=== PATIENT | female | born 1960 | race Caucasian/White ===

== ENCOUNTER 2022-01-01 15:12 | Emergency (ER) | payer OTHER, SELFPAY ==
[2022-01-01 15:23] VITALS: BP 146/77; PULSE 87; RESP 20; TEMP 36.3; O2SAT 96; BMI 33.5
--- NOTE | 2022-01-01 15:36 | CRLHL7_ITS ---
For Patients: As a result of the Cures Act, medical imaging exams and procedure reports are released immediately into your electronic medical record. You may view this report before your referring provider. If you have questions, please contact your health care provider. INDICATION: Left knee pain in the patellar region. TECHNIQUE: Three views of the left knee. FINDINGS: Soft tissue swelling anterior to the patella. No patellar fracture or patellar subluxation. The medial and lateral compartments are fairly well preserved. No acute fracture, dislocation, or erosion. IMPRESSION: Soft tissue swelling anterior to the left patella. Please correlate regarding any history of trauma. Dictated by Rodríguez Pinto MD @ 01/01/2022 4:50:52 PM (Electronically Signed)
--- NOTE | 2022-01-01 15:37 | ED.GENADULT ---
HPI - General Adult General Time Seen by Provider: 15:37 Date Seen: 01/01/22 Chief complaint: Extremity Pain/Injury, Lower Stated complaint: SLIPPED PATELLA Time Seen by Provider: 01/01/22 15:13 Source: patient Mode of arrival: ambulatory Limitations: no limitations History of Present Illness HPI narrative: Patient is a 61 year white female was getting on the bed with her dog, and put 1 leg up and got both legs up and then felt something funny in her left kneecap area and noticed some swelling and what seemed to be deformity. She is able to move her knee, she has noted some swelling over the top of the kneecap. She denies significant trauma or injury. She has had no recent or prior history of knee injury or patellar dislocations. No other injury or problem at this time. Pain is reported to be minimal now. Related Data Home Medications Medication Instructions Recorded Confirmed No Known Home Medications 01/01/22 01/01/22 Allergies Allergy/AdvReac Type Severity Reaction Status Date / Time Penicillins Allergy Fever Verified 01/01/22 15:27 Review of Systems Status of ROS: Reports: 6 or more systems reviewed and unremarkable except as noted in History and below [facility] Social History Smoking Status: Never smoker Do you use any of these nicotine containing products: None Second hand tobacco smoke exposure: No How often do you have a drink containing alcohol: never How many standard drinks containing alcohol do you have on a typical day: 1 or 2 How often do you have six or more drinks on one occasion: Never AUDIT-C Alcohol total score: 0 Non-prescribed substance use: denies use Exam Narrative: Exam Narrative: Objective: Patient has reassuring vital signs Appears in no distress Left knee shows some prepatellar swelling and bruising she is able to flex and extend her knee fairly fully distal CMS normal left lower extremity. She has mild patellar apprehension sign Patella does not appear to be dislocated, and seems a ride in the femoral groove with flexion extension of the knee. Const: Vital Signs, click to edit/add: Vital Signs - 24 hr 01/01/22 15:23 Temperature 97.3 F L Pulse Rate [Right Pulse Oximeter] 87 Respiratory Rate 20 Blood Pressure [Ri ght Upper Arm] 146/77 H Pulse Oximetry 96 Course Vital Signs Vital signs: Initial Vital Signs Temperature 97.3 F L 01/01/22 15:23 Temperature Source Temporal Artery Scan 01/01/22 15:23 Pulse Rate 87 01/01/22 15:23 Respiratory Rate 20 01/01/22 15:23 Blood Pressure 146/77 H 01/01/22 15:23 Blood Pressure Mean 100 01/01/22 15:23 Blood Pressure Position Supine 01/01/22 15:23 Pulse Oximetry 96 01/01/22 15:23 Vital Signs Temperature 97.3 F L 01/01/22 15:23 Pulse Rate 87 01/01/22 15:23 Respiratory Rate 20 01/01/22 15:23 Blood Pressure 146/77 H 01/01/22 15:23 Pulse Oximetry 96 01/01/22 15:23 Temperature 97.3 F L 01/01/22 15:23 Pulse Rate 87 01/01/22 15:23 Respiratory Rate 20 01/01/22 15:23 Blood Pressure 146/77 H 01/01/22 15:23 Pulse Oximetry 96 01/01/22 15:23 Medical Decision Making MDM Narrative Medical decision making narrative: Patient possibly had a subluxed patella with now prepatellar swelling and bursitis inflammation. Will check an x-ray including a sunrise view of the left knee, will get her a knee immobilizer, have her ice on a grass on aggressive basis 10 minutes 3 to 4 times a day if possible, and follow up with primary care in the next 2-3 days for reassessment. She was comfortable this plan. Will review x-rays returns. Addendum: The patient's x-ray by my read shows no patellar dislocation or fracture. Knee immobilizer, weight-bearing as tolerated, icing on a regular basis, Advil 600 mg t.i.d. over the next few days, follow-up with primary care in 2-3 days, certainly return to the ED sooner problems concerns difficulty, will await Radiology read of her x-ray. Discharge Plan Discharge Clinical Impression: Acute knee pain, Lateral subluxation of left patella Patient Disposition: Home, Self-Care Condition: Stable Additional Instructions: Knee immobilizer until follow-up with primary care in the next 2-3 days Advil 400-600 mg t.i.d. over the next few days Iced 10 minutes 3 to 4 times a day to the left knee area Return to ED problems concerns difficulty. Activity Level: Weight Bearing as Tolerated Discharge Diet: Regular Prescriptions: No Action No Known Home Medications Stand Alone Forms: [employer] Info Instructions
== END 2022-01-01 16:20 | disposition home or self-care (01) ==
LOC: ED 16:15
PROVIDERS: Emergency Provider Family Medicine
DX: S83.012A Lateral subluxation of left patella, initial encounter (principal)
CPT/HCPCS: 73562; 99283; M0243

== ENCOUNTER 2022-04-04 08:30 | Outpatient (RCR) | payer OTHER, SELFPAY | END 2022-05-04 14:36 | disposition home or self-care (01) | PROVIDERS: Visit Provider Family Medicine | DX: S83.006D Unspecified dislocation of unspecified patella, subsequent encounter (principal); Z51.89 Encounter for other specified aftercare | CPT/HCPCS: 97110; 97140; 97161 ==

== ENCOUNTER 2024-03-08 13:18 | Emergency (ER) | payer OTHER, SELFPAY ==
[2024-03-08 13:26] VITALS: BP 159/80; PULSE 89; RESP 16; TEMP 36.9; O2SAT 95; BMI 33.3
--- NOTE | 2024-03-08 13:34 | ED_ITS ---
HPI - General Adult General Chief complaint: Fall/Minor Trauma Stated complaint: Fall, hit head Time Seen by Provider: 03/08/24 13:33 History of Present Illness HPI narrative: c/o fall and hit side of head on cement wall. missed one step and stumbled into cement wall, pt. denies LOC and blood thinners. 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 64-year-old woman presenting to the emergency department following a fall. Missed a step and stumbled into a cement wall. Partly related to blindness in the right eye probably. Right-sided jaw feels stiff. She indicates area that she was hit she believes to be her samaritan and would prefer not to have a Ale Silveira like event. Denies significant neck pain. No back pain. There was no loss of consciousness. No radicular symptoms. Related Data Home Medications ?Medication ?Instructions ?Recorded ?Confirmed ergocalciferol (vitamin D2) 10 mcg 400 unit PO DAILY 01/06/22 10/30/23 (400 unit) tablet multivitamin (Multiple Vitamins 1 tab PO QDAY 01/06/22 10/30/23 tablet) ascorbic acid (vitamin C) 500 mg 500 mg PO DAILY 07/07/23 10/30/23 capsule magnesium L-threonate 48 mg 48 mg PO DAILY 07/07/23 10/30/23 magnesium (667 mg) capsule omega-3 fatty acids 500 mg capsule 500 mg PO QDAY 07/07/23 10/30/23 Allergies Allergy/AdvReac Type Severity Reaction Status Date / Time Penicillins Allergy Fever Verified 03/08/24 13:26 azithromycin AdvReac Mild Nausea Verified 03/08/24 13:26 Review of Systems Status of ROS: Reports: 6 or more systems reviewed and unremarkable except as noted in History and below [facility] Surgical History (Updated 01/06/22 @ 15:34 by Raul Woodall MD) History of eye surgery ?Z98.890 - Other specified postprocedural states (ICD-10) Hx of section ?Z98.891 - History of uterine scar from previous surgery (ICD-10) Social History Smoking Status: Never smoker Do you use any of these nicotine containing products: None Second hand tobacco smoke exposure: No How often do you have a drink containing alcohol: never How many standard drinks containing alcohol do you have on a typical day: 1 or 2 How often do you have six or more drinks on one occasion: Never AUDIT-C Alcohol total score: 0 Non-prescribed substance use: denies use Exam Narrative: Exam Narrative: Pleasant. NAD. Cranial nerves 2-12 are intact however lack of reaction and accommodation in the right eye. Moving all extremities without difficulty. Neck is supple. Little sore in the low paracervical musculature on the left or into the trapezius. Area of discomfort and impact appears to been the posterior zygoma/zygomatic arch into the TMJ or above the TMJ. No dental injury. No crepitus ordered defect appreciated. Extraocular movements are full. Const: Vital Signs, click to edit/add: Vital Signs - 24 hr 03/08/24 13:26 Temperature 98.4 F Pulse Rate [Pulse Oximeter] 89 Respiratory Rate 16 Blood Pressure [Ri ght Upper Arm] 159/80 H Pulse Oximetry 95 Oxygen Delivery Me thod Room Air Documenting provider has reviewed patient's vital signs: yes Course Vital Signs Vital signs: Initial Vital Signs Temperature 98.4 F 03/08/24 13:26 Temperature Source Temporal Artery Scan 03/08/24 13:26 Pulse Rate 89 03/08/24 13:26 Respiratory Rate 16 03/08/24 13:26 Blood Pressure 159/80 H 03/08/24 13:26 Blood Pressure Mean 106 H 03/08/24 13:26 Blood Pressure Position Sitting 03/08/24 13:26 Pulse Oximetry 95 03/08/24 13:26 Oxygen Delivery Method Room Air 03/08/24 13:26 Vital Signs Temperature 98.4 F 03/08/24 13:26 Pulse Rate 89 03/08/24 13:26 Respiratory Rate 16 03/08/24 13:26 Blood Pressure 159/80 H 03/08/24 13:26 Pulse Oximetry 95 03/08/24 13:26 Oxygen Delivery Method Room Air 03/08/24 13:26 Temperature 98.4 F 03/08/24 13:26 Pulse Rate 89 03/08/24 13:26 Respiratory Rate 16 03/08/24 13:26 Blood Pressure 159/80 H 03/08/24 13:26 Pulse Oximetry 95 03/08/24 13:26 Oxygen Delivery Method Room Air 03/08/24 13:26 Medical Decision Making MDM Narrative Medical decision making narrative: I think more of a contusion than likely intracranial head injury. Does not appear to have sustained impact actually at the samaritan. Think watchful waiting would be acceptable option here. CT head is certainly an acceptable option as well. This does appear to have been a trip and fall event more than any sort of presyncopal case. Will to consider this further. She would like to proceed with head CT. Thi s was arranged. CT head reviewed by me does not show any acute abnormality. Radiology over-read noting ?right orbital prosthesis? Had been icing. See patient discharge plan for further discussion Medical Records Medical records reviewed: Yes I reviewed the patient's medical records Discharge Plan Discharge Clinical Impression: Closed head injury, Contusion Additional Instructions: I would ice this impact area 2-3 times daily over the next few days. Ibuprofen or acetaminophen or naproxen. Discussed neck pull down stretches. Could do these a few times a day. Little deeper each time. See also handout on upper back stretches that might be helpful. Prescriptions: No Action multivitamin [Multiple Vitamins] Tablet 1 tab PO QDAY ergocalciferol (vitamin D2) 10 mcg (400 unit) tablet 400 unit PO DAILY magnesium L-threonate 48 mg magnesium (667 mg) capsule 48 mg PO DAILY ascorbic acid (vitamin C) 500 mg capsule 500 mg PO DAILY omega-3 fatty acids 500 mg capsule 500 mg PO QDAY Follow Up/Referrals: Provider,Not a Local [Primary Care Provider] - Stand Alone Forms: [employer] Info Instructions
--- NOTE | 2024-03-08 13:59 | CRLHL7_ITS ---
For Patients: As a result of the Century Cures Act, medical imaging exams and procedure reports are released immediately into your electronic medical record. You may view this report before your referring provider. If you have questions, please contact your health care provider. INDICATION: Right-sided head impact TECHNIQUE: CT head without contrast. COMPARISON: None. FINDINGS: CSF spaces: Within normal limits for age. Brain parenchyma: The rodriguez-white differentiation is normal. No sign of mass, hemorrhage, or midline shift. Skull base and calvarium: The visualized paranasal sinuses and mastoid air cells demonstrate no acute or significant findings. Right orbital prosthesis. No skull fractures. IMPRESSION: Unremarkable noncontrast head CT. Please note that all CT scans at this facility use dose modulation, iterative reconstruction, and/or weight-based dosing when appropriate to reduce radiation dose to as low as reasonably achievable. Dictated by Leo Moon MD @ 03/08/2024 2:37:09 PM (Electronically Signed)
== END 2024-03-08 15:42 | disposition home or self-care (01) ==
LOC: ED 15:30
PROVIDERS: Emergency Provider Family Medicine
DX: S00.93XA Contusion of unspecified part of head, initial encounter (principal); W01.198A Fall on same level from slipping, tripping and stumbling with subsequent striking against other object, initial encounter
CPT/HCPCS: 70450; 99284

== ENCOUNTER 2024-10-19 00:18 | Emergency (ER) | payer BC, SELFPAY ==
[2024-10-19 01:03] VITALS: BP 141/81; PULSE 89; RESP 18; TEMP 36.7; O2SAT 99; BMI 33.9
--- NOTE | 2024-10-19 01:14 | ED_ITS ---
HPI - Eye Problem General Time Seen by Provider: 01:14 Date Seen: 10/19/24 Chief complaint: Eye Problems Stated complaint: R eye is stinging, has something in it Time Seen by Provider: 10/19/24 00:50 Source: patient and RN notes reviewed Mode of arrival: ambulatory Limitations: no limitations History of Present Illness HPI Narrative: This 64-year-old female is coming into the ER with concern of chemical exposure on her face. She went to reach charge her mosquito repellent device. She went and picked up the device, plugged in the socket. And then she thinks she touched her face and there must have been residue from hanging onto the device. She felt burning on her right face. She has a prosthetic eye, did take that out, irrigated the eye socket. She felt a little on the forehead over the nose and became concerned as she started to think she was feeling it on the left eye. She does not feel like there is anything in the eye, no tearing of the eye, no visual changes. Was burning sensation of the skin around the eye. We did contact poison Control. This likely contained metofluthrin and they state there is not a fear of spreading. They would not recommend further irrigation. She irrigated with water for about 20 minutes, the water obviously was focused around her right eye and socket but did go over her face in general. She still has a little sense of burning sensation particularly around the right eye socket. Related Data Home Medications ?Medication ?Instructions ?Recorded ?Confirmed ergocalciferol (vitamin D2) 10 mcg 400 unit PO DAILY 0 01/06/22 10/19/24 (400 unit) tablet multivitamin (Multiple Vitamins 1 tab PO QDAY 01/06/22 10/19/24 tablet) ascorbic acid (vitamin C) 500 mg 500 mg PO DAILY 07/0610/19/24 capsule magnesium L-threonate 48 mg 48 mg PO DAILY 07/07/23 magnesium (667 mg) capsule omega-3 fatty acids 500 mg capsule 500 mg PO QDAY 12/2210/19/24 Allergies Allergy/AdvReac Type Severity Reaction Status Date / Time Penicillins Allergy Fever Verified 10/19/24 01:07 azithromycin AdvReac Mild Nausea Verified 10/19/24 01:07 Review of Systems Narrative: As per HPI PFSH PFSH Surgical History History of eye surgery ?Z98.890 - Other specified postprocedural states (ICD-10) Hx of section ?Z98.891 - History of uterine scar from previous surgery (ICD-10) Social History Smoking Status: Never smoker Do you use any of these nicotine containing products: None Second hand tobacco smoke exposure: No How often do you have a drink containing alcohol: never How many standard drinks containing alcohol do you have on a typical day: 1 or 2 How often do you have six or more drinks on one occasion: Never AUDIT-C Alcohol total score: 0 Non-prescribed substance use: denies use Exam Const: Vital Signs, click to edit/add: Vital Signs - 24 hr 10/19/24 01:03 Temperature 98.1 F Pulse Rate [Right Pulse Oximeter] 89 Respiratory Rate 18 Blood Pressure [Le ft Upper Arm] 141/81 H Pulse Oximetry 99 Oxygen Delivery Me thod Room Air This 64-year-old female is alert, interactive, no apparent distress. Skin on her face shows no erythema, no rash. She has her prosthetic eye out. It is no draining in her left eye, no watering, conjunctiva is normal, no erythema. Pupil is round and regular. She has normal eye movement of the left socket. There is absolutely no periorbital erythema swelling of either side. Skin is completely normal. Documenting provider has reviewed patient's vital signs: yes Course Course ED Course: Poison Control was contacted, this was related to patient. She will be discharged to home. Poison Control does not recommend further irrigation, recommend leaving the globe out of the right eye tonight. They did ask if they could use some cool compresses or ice packs and that certainly should be fine. She could also try some Tylenol. Vital Signs Vital signs: Initial Vital Signs Temperature 98.1 F 10/19/24 01:03 Temperature Source Temporal Artery Scan 10/19/24 01:03 Pulse Rate 89 10/19/24 01:03 Respiratory Rate 18 10/19/24 01:03 Blood Pressure 141/81 H 10/19/24 01:03 Blood Pressure Mean 101 10/19/24 01:03 Blood Pressure Position Sitting 10/19/24 01:03 Pulse Oximetry 99 10/19/24 01:03 Oxygen Delivery Method Room Air 10/19/24 01:03 Vital Signs Temperature 98.1 F 10/19/24 01:03 Pulse Rate 89 10/19/24 01:03 Respiratory Rate 18 10/19/24 01:03 Blood Pressure 141/81 H 10/19/24 01:03 Pulse Oximetry 99 10/19/24 01:03 Oxygen Delivery Method Room Air 10/19/24 01:03 Temperature 98.1 F 10/19/24 01:03 Pulse Rate 89 10/19/24 01:03 Respiratory Rate 18 10/19/24 01:03 Blood Pressure 141/81 H 10/19/24 01:03 Pulse Oximetry 99 10/19/24 01:03 Oxygen Delivery Method Room Air 10/19/24 01:03 Discharge Plan Discharge Clinical Impression: Chemical exposure of eye Patient Disposition: Home, Self-Care Condition: Stable Additional Instructions: Per poison Control this should be self-limited. It is fine to try some cool compresses or ice pack to help minimize the burning/stinging. I would anticipate that this will be largely gone by morning. You certainly can try some Tylenol to help with discomfort, fine to take a 1000 mg. If you do notice that there is any skin changes such as redness or irritation in the morning, please seek re-evaluation. Activity Level: No Restrictions Prescriptions: No Action multivitamin [Multiple Vitamins] Tablet 1 tab PO QDAY ergocalciferol (vitamin D2) 10 mcg (400 unit) tablet 400 unit PO DAILY magnesium L-threonate 48 mg magnesium (667 mg) capsule 48 mg PO DAILY ascorbic acid (vitamin C) 500 mg capsule 500 mg PO DAILY omega-3 fatty acids 500 mg capsule 500 mg PO QDAY Follow Up/Referrals: Provider,Not a Local [Primary Care Provider, Family Practice] Stand Alone Forms: [employer] Info Instructions
[2024-10-19 01:56] VITALS: BP 135/74; PULSE 74; RESP 18; TEMP 36.7; O2SAT 99
[2024-10-19 01:57] VITALS: BP 135/74; PULSE 74; RESP 18; TEMP 36.7
== END 2024-10-19 01:57 | disposition home or self-care (01) ==
LOC: ED 01:50
PROVIDERS: Emergency Provider Family Medicine
DX: H57.11 Ocular pain, right eye (principal); Z77.098 Contact with and (suspected) exposure to other hazardous, chiefly nonmedicinal, chemicals
CPT/HCPCS: 99282; 99283